=== PATIENT | female | born 1935 | race Caucasian/White ===

== ENCOUNTER 2017-06-17 15:45 | Emergency (ER) | payer MEDICARE, BC ==
[2017-06-17 16:41] LABS: ALT (SGPT) 19 U/L (8-55); AST (SGOT) 22 U/L (5-34); Albumin 3.8 g/dL (3.4-4.8); Alkaline Phosphatase 137 U/L (40-150); Anion Gap 15 mmol/L (10-20); BUN (Urea Nitrogen) 15 mg/dL (9.8-20.1); Bilirubin, Total 0.4 mg/dL (0.2-1.2); CK (CPK) 28 U/L (29-168); Calc. Creatinine Clearance 0 mL/min (70-130); Calcium 9.6 mg/dL (7.8-10.44); Carbon Dioxide 24 mmol/L (23-31); Chloride 94 mmol/L (98-107); Estimated GFR-MDRD 80; Globulin 3.4 g/dL (2.4-3.5); Glucose 98 mg/dL (83-110); Potassium 4.1 mmol/L (3.5-5.1); Protein, Total 7.2 g/dL (6.0-8.3); Sodium 129 mmol/L (136-145)
--- NOTE | 2017-06-17 16:41 | RAD ---
PORTABLE AP VIEW CHEST: Date: 06/17/17 HISTORY: Dyspnea and weakness since Saturday. COMPARISON: 02/28/16. FINDINGS: A single lead left subclavian AICD device is noted in place. The cardiac silhouette and pulmonary vas culature are within normal limits. Lungs are clear. Vascular calcifications seen thoracic aorta. Ther e is bilateral acromioclavicular joint osteoarthritis. There is mild prominence of the right paratrac heal soft tissues, but this is a stable finding when compared to the prior exam, as well as a prior e xam on 05/26/13, and may be related to vascular structures. There has been no interval change from th e prior exams. IMPRESSION: No acute cardiopulmonary process. POS: [facility]
[2017-06-17 16:44] LABS: CKMB 0.4 ng/mL (0-6.6); Troponin I Less than 0.010 ng/mL (< 0.028)
[2017-06-17 16:47] LABS: Band 4 % (5-11); Eosinophils 2 % (0-10); Hemoglobin 11.7 g/dL (12.0-16.0); Lymphocytes 26 % (21-51); MDiff Complete? YES; Mean Corpuscular HGB CONC 33.1 g/dL (32.0-36.0); Mean Corpuscular Hemoglobin 29.9 pg (27.0-31.0); Mean Corpuscular Volume 90.4 fl (81.0-99.0); Mean Platelet Volume 6.2 fL (7.4-10.4); Monocytes 10 % (0-10); Neutrophil 53 % (42-75); PLT Morphology Comment Appears Adequate; Platelet Count 304 thou/uL (130-400); RBC Distribution Width 11.2 % (11.5-14.5); Reactive Lymphocytes 4 % (0-10); Toxic Granulation SLIGHT; Vacuoles SLIGHT; White Blood Cell (WBC) Count 7.7 thou/uL (4.8-10.8)
[2017-06-17 17:18] LABS: Bilirubin Negative (Negative); Blood, Urine Negative (Negative); Clarity Clear (Clear); Glucose, Urine (Dipstick) Negative (Negative); Leukocyte Trace (Negative); Nitrite Negative (Negative); Protein, Urine (Dipstick) Negative (Neg-Trace); Urobilinogen 0.2 mg/dL (0.2-1.0)
[2017-06-17 17:23] LABS: Bacteria/HPF 1+ HPF (None Seen); RBC/HPF 0-3 HPF (0-3); Squamous Epithelial 0-3 HPF (0-3)
[2017-06-17] MEDS ORDERED: Sodium Chloride 0.9% 100 ML ONE (17:51)
[2017-06-17] MEDS ORDERED: cefTRIAXone\\ROCEPHIN 1 GM VIAL ONE (17:51)
== END 2017-06-17 18:45 | disposition home or self-care (01) ==
LOC: SCSER 15:45
DX: N39.0 Urinary tract infection, site not specified (principal); I48.91 Unspecified atrial fibrillation; E03.9 Hypothyroidism, unspecified; I10 Essential (primary) hypertension
CPT/HCPCS: 71045; 80053; 81003; 81015; 82550; 82553; 84484; 85025; 87086; 93005; 94760; 96361; 96365; J0696; J7050

== ENCOUNTER 2017-07-10 16:55 | Emergency (ER) | payer MEDICARE, BC ==
[2017-07-10 17:31] LABS: #Eosinphils 0.2 thou/uL (0.0-0.7); #Lymphocytes 0.9 thou/uL (1.20-3.40); #Monocytes 0.3 thou/uL (0.11-0.59); #Neutrophils 6.5 thou/uL (1.40-6.50); %Basophils 0.2 % (0.0-1.0); %Lymphocytes 11.9 % (21.0-51.0); %Neutrophils 81.8 % (42.0-75.0); Mean Corpuscular HGB CONC 33.1 g/dL (32.0-36.0); Mean Corpuscular Hemoglobin 31.6 pg (27.0-31.0); Mean Corpuscular Volume 95.3 fl (81.0-99.0); Mean Platelet Volume 7.2 fL (7.4-10.4); Platelet Count 251 thou/uL (130-400); RBC Distribution Width 11.9 % (11.5-14.5); White Blood Cell (WBC) Count 7.9 thou/uL (4.8-10.8)
[2017-07-10 17:47] LABS: ALT (SGPT) 14 U/L (8-55); AST (SGOT) 21 U/L (5-34); Albumin 3.9 g/dL (3.4-4.8); Alkaline Phosphatase 108 U/L (40-150); Anion Gap 11 mmol/L (10-20); BUN (Urea Nitrogen) 14 mg/dL (9.8-20.1); Bilirubin, Total 0.4 mg/dL (0.2-1.2); Calc. Creatinine Clearance 0 mL/min (70-130); Calcium 9.2 mg/dL (7.8-10.44); Carbon Dioxide 25 mmol/L (23-31); Chloride 94 mmol/L (98-107); Estimated GFR-MDRD 65; Globulin 3.1 g/dL (2.4-3.5); Glucose 127 mg/dL (83-110); Potassium 4.2 mmol/L (3.5-5.1); Sodium 126 mmol/L (136-145)
[2017-07-10 18:51] LABS: Bilirubin Negative (Negative); Blood, Urine Negative (Negative); Clarity CLEAR (Clear); Glucose, Urine (Dipstick) Negative (Negative); Leukocyte Moderate (Negative); Nitrite Negative (Negative); Protein, Urine (Dipstick) Negative (Neg-Trace); Specific Gravity, Urine 1.008 (1.002-1.036); Urobilinogen 0.2 mg/dL (0.2-1.0); pH, Urine 6.5 (5.0-9.0)
[2017-07-10 18:52] LABS: Bacteria/HPF None Seen HPF (None Seen); Hyaline Casts/LPF 4-6 HYALINE CAST LPF (0-3 Hyaline); Pathc Cast-AUWi Flag 0.94 (0-2.49); RBC/HPF 0-3 HPF (0-3)
[2017-07-10 19:50] LABS: Prothrombin Time 13.5 SEC (12.0-14.7)
[2017-07-10 20:01] LABS: CKMB 0.6 ng/mL (0-6.6); Troponin I Less than 0.010 ng/mL (< 0.028)
--- NOTE | 2017-07-10 20:19 | RAD ---
PORTABLE AP CHEST X-RAY 07/10/17 HISTORY: Weakness. Recent history of UTI treated with antibiotics. COMPARISON: 06/17/17. FINDINGS: A single lead left subclavian AICD device remains in place. The cardiac silhouette is magnified by pr ojection. Pulmonary vasculature is within normal limits. The lungs are clear. Vascular calcifications seen in the thoracic aorta. There has been no interval change compared to the prior exam. IMPRESSION: No acute cardiopulmonary process. POS: [facility]
== END 2017-07-10 23:18 | disposition home or self-care (01) ==
LOC: ERS 16:55
DX: E87.1 Hypo-osmolality and hyponatremia (principal); R53.1 Weakness; E03.9 Hypothyroidism, unspecified; N39.0 Urinary tract infection, site not specified; I48.91 Unspecified atrial fibrillation; I10 Essential (primary) hypertension; Z79.899 Other long term (current) drug therapy
CPT/HCPCS: 36415; 71045; 80053; 81003; 81015; 82553; 84443; 84484; 85025; 85610; 93005; 96360; 96361

== ENCOUNTER 2017-08-06 14:15 | Emergency (ER) | payer MEDICARE, BC ==
[2017-08-06 15:29] LABS: #Basophils 0.1 thou/uL (0.0-0.2); #Eosinphils 0.2 thou/uL (0.0-0.7); #Lymphocytes 1.4 thou/uL (1.20-3.40); #Monocytes 1.2 thou/uL (0.11-0.59); #Neutrophils 6.3 thou/uL (1.40-6.50); %Basophils 0.6 % (0.0-1.0); %Eosinophils 2.2 % (0.0-10.0); %Lymphocytes 15.6 % (21.0-51.0); %Monocytes 13.2 % (0.0-10.0); %Neutrophils 68.4 % (42.0-75.0); Hemoglobin 11.7 g/dL (12.0-16.0); Mean Corpuscular HGB CONC 33.4 g/dL (32.0-36.0); Mean Corpuscular Hemoglobin 31.1 pg (27.0-31.0); Mean Corpuscular Volume 93.1 fl (81.0-99.0); Mean Platelet Volume 6.7 fL (7.4-10.4); Platelet Count 247 thou/uL (130-400); RBC Distribution Width 12.2 % (11.5-14.5); Red Blood Cell (RBC) Count 3.76 mill/uL (4.20-5.40); White Blood Cell (WBC) Count 9.2 thou/uL (4.8-10.8)
--- NOTE | 2017-08-06 15:48 | RAD ---
CHEST ONE VIEW: 08/06/17 HISTORY: 82-year-old female with history of bodyaches and weakness which began yesterday. COMPARISON: 07/10/17. FINDINGS: Left ICD. Atherosclerosis of the aorta with ectasia. Biapical pleural thickening. No confluent pneumo vito, overt edema or pleural effusion. IMPRESSION: No acute intrathoracic disease. Stable from prior exam. POS: [facility]
[2017-08-06 15:53] LABS: ALT (SGPT) 10 U/L (8-55); AST (SGOT) 19 U/L (5-34); Albumin 3.6 g/dL (3.4-4.8); Alkaline Phosphatase 138 U/L (40-150); Anion Gap 13 mmol/L (10-20); BUN (Urea Nitrogen) 9 mg/dL (9.8-20.1); Bilirubin, Total 0.6 mg/dL (0.2-1.2); Calc. Creatinine Clearance 0 mL/min (70-130); Calcium 9.2 mg/dL (7.8-10.44); Carbon Dioxide 23 mmol/L (23-31); Chloride 98 mmol/L (98-107); Estimated GFR-MDRD 80; Glucose 95 mg/dL (83-110); Potassium 4.3 mmol/L (3.5-5.1); Protein, Total 6.6 g/dL (6.0-8.3); Sodium 130 mmol/L (136-145)
[2017-08-06 15:58] LABS: CKMB 0.3 ng/mL (0-6.6); Troponin I Less than 0.010 ng/mL (< 0.028)
[2017-08-06 17:07] LABS: Bilirubin Negative (Negative); Blood, Urine Negative (Negative); Clarity CLEAR (Clear); Glucose, Urine (Dipstick) Negative (Negative); Leukocyte Negative (Negative); Nitrite Negative (Negative); Protein, Urine (Dipstick) Negative (Neg-Trace); Specific Gravity, Urine 1.013 (1.002-1.036); Urobilinogen 0.2 mg/dL (0.2-1.0)
== END 2017-08-06 20:32 | disposition home or self-care (01) ==
LOC: ERS 14:15
DX: R53.1 Weakness (principal); I48.91 Unspecified atrial fibrillation; I42.9 Cardiomyopathy, unspecified; G47.00 Insomnia, unspecified; Z79.899 Other long term (current) drug therapy
CPT/HCPCS: 36415; 71045; 80053; 81003; 82553; 84443; 84484; 85025; 93005; 96360; 96361

== ENCOUNTER 2017-10-04 18:53 | Inpatient (IN) | payer MEDICARE, BC ==
[2017-10-04 19:27] LABS: Bilirubin Negative (Negative); Blood, Urine Negative (Negative); Clarity CLEAR (Clear); Glucose, Urine (Dipstick) Negative (Negative); Leukocyte Negative (Negative); Nitrite Negative (Negative); Protein, Urine (Dipstick) Negative (Neg-Trace); Specific Gravity, Urine 1.006 (1.002-1.036); Urobilinogen 0.2 mg/dL (0.2-1.0)
[2017-10-04 19:54] LABS: #Basophils 0.1 thou/uL (0.0-0.2); #Eosinphils 0.3 thou/uL (0.0-0.7); #Lymphocytes 1.4 thou/uL (1.20-3.40); #Monocytes 0.6 thou/uL (0.11-0.59); #Neutrophils 8.1 thou/uL (1.40-6.50); %Basophils 0.6 % (0.0-1.0); %Eosinophils 2.5 % (0.0-10.0); %Lymphocytes 13.7 % (21.0-51.0); %Neutrophils 77.2 % (42.0-75.0); Hemoglobin 13.3 g/dL (12.0-16.0); Mean Corpuscular HGB CONC 33.9 g/dL (32.0-36.0); Mean Corpuscular Hemoglobin 31.6 pg (27.0-31.0); Mean Corpuscular Volume 93.1 fl (81.0-99.0); Mean Platelet Volume 6.7 fL (7.4-10.4); Platelet Count 233 thou/uL (130-400); RBC Distribution Width 12.7 % (11.5-14.5); Red Blood Cell (RBC) Count 4.21 mill/uL (4.20-5.40); White Blood Cell (WBC) Count 10.4 thou/uL (4.8-10.8)
[2017-10-04 20:13] LABS: ALT (SGPT) 10 U/L (8-55); AST (SGOT) 19 U/L (5-34); Albumin 3.4 g/dL (3.4-4.8); Alkaline Phosphatase 95 U/L (40-150); Anion Gap 12 mmol/L (10-20); BUN (Urea Nitrogen) 11 mg/dL (9.8-20.1); Bilirubin, Total 0.5 mg/dL (0.2-1.2); CK (CPK) 56 U/L (29-168); Calc. Creatinine Clearance 0 mL/min (70-130); Calcium 8.7 mg/dL (7.8-10.44); Carbon Dioxide 20 mmol/L (23-31); Chloride 97 mmol/L (98-107); Estimated GFR-MDRD 65; Globulin 2.8 g/dL (2.4-3.5); Glucose 123 mg/dL (83-110); Protein, Total 6.2 g/dL (6.0-8.3); Sodium 125 mmol/L (136-145)
[2017-10-04 20:18] LABS: CKMB 0.8 ng/mL (0-6.6); Troponin I Less than 0.010 ng/mL (< 0.028)
--- NOTE | 2017-10-04 20:30 | RAD ---
AP VIEW OF THE CHEST: 10/04/17 INDICATION: Generalized weakness. COMPARISON: Comparisons are made with prior dated 08/06/17. IMPRESSION: Stable chronic lung changes. No acute cardiopulmonary abnormality. AICD is unchanged. Vascular calcif ication of the aortic arch is similar. Chronic lung changes are similar. No acute osseous abnormality is evident. POS: [facility]
[2017-10-04] MEDS ORDERED: Pantoprazole 40 MG VIAL ONE (20:59)
[2017-10-04 22:57] VITALS: BMI 23.6
[2017-10-04 23:21] LABS: Troponin I Less than 0.010 ng/mL (< 0.028)
[2017-10-05] MEDS ORDERED: Ondansetron HCl/PF 4 MG/2 ML Vial IVP PRN (01:54)
[2017-10-05 02:06] LABS: #Basophils 0.2 thou/uL (0.0-0.2); #Eosinphils 0.1 thou/uL (0.0-0.7); #Lymphocytes 0.4 thou/uL (1.20-3.40); #Monocytes 0.6 thou/uL (0.11-0.59); #Neutrophils 11.6 thou/uL (1.40-6.50); %Basophils 1.8 % (0.0-1.0); %Eosinophils 0.4 % (0.0-10.0); %Lymphocytes 3.3 % (21.0-51.0); %Monocytes 4.5 % (0.0-10.0); Hemoglobin 12.3 g/dL (12.0-16.0); Mean Corpuscular HGB CONC 33.9 g/dL (32.0-36.0); Mean Corpuscular Hemoglobin 31.1 pg (27.0-31.0); Mean Corpuscular Volume 91.8 fl (81.0-99.0); Mean Platelet Volume 6.8 fL (7.4-10.4); Platelet Count 216 thou/uL (130-400); RBC Distribution Width 12.8 % (11.5-14.5); Red Blood Cell (RBC) Count 3.94 mill/uL (4.20-5.40); White Blood Cell (WBC) Count 12.8 thou/uL (4.8-10.8)
[2017-10-05] MEDS: Sodium Chloride 0.9% 1,000 ML IV SCH ×2 (02:15→13:56)
[2017-10-05 02:24] LABS: Troponin I Less than 0.010 ng/mL (< 0.028)
[2017-10-05 02:38] LABS: Prothrombin Time 13.6 SEC (12.0-14.7)
[2017-10-05 02:57] LABS: Anion Gap 9 mmol/L (10-20); BUN (Urea Nitrogen) 11 mg/dL (9.8-20.1); Calc. Creatinine Clearance 56 mL/min (70-130); Calcium 7.8 mg/dL (7.8-10.44); Carbon Dioxide 23 mmol/L (23-31); Chloride 101 mmol/L (98-107); Estimated GFR-MDRD 80; Glucose 143 mg/dL (83-110); Potassium 3.8 mmol/L (3.5-5.1); Sodium 129 mmol/L (136-145)
--- NOTE | 2017-10-05 03:14 | HP ---
PRIMARY CARE PHYSICIAN: Brain Alvarado M.D. CHIEF COMPLAINT: Weakness. HISTORY OF PRESENT ILLNESS: This is an 82-year-old female with a known history of hypothyroidism, hy pertension, degenerative joint disease, prior history of chronic hyponatremia, nonischemic cardiomyop athy, status post ICD placement, who presents with a chief complaint of weakness. The patient gives a history of progressive weakness over the last week, accompanied by decreased p.o. intake and consti pation. Denies any fevers or chills. Denies any overt myalgias or arthralgias. REVIEW OF SYSTEMS: As per HPI. Constitutional: No significant weight change. No fevers or chills. HEENT: No new headaches, lightheadedness or dizziness. No new vision changes. Cardiovascular: N o overt chest pain or chest pressure. Easy fatigability. No left-sided arm numbness or tingling, di aphoretic episodes. Respiratory: No overt shortness of breath or dyspnea with exertion with the wea kness. No recent upper respiratory infection. No new cough. Gastrointestinal: Decreased appetite without overt nausea or vomiting, constipation over the last few days. Genitourinary: Denies any dy suria, change in urinary frequency, quantity, or output color or odor. Musculoskeletal: No new foca l myalgias or arthralgias. Remainder of review of systems otherwise negative. PAST MEDICAL HISTORY: As per above includes, 1. Hypertension. 2. Hypothyroidism. 3. Hyponatremia, baseline sodium from our records to be approximately in the 130s. 4. Polymyalgia rheumatica with chronic prednisone therapy. 5. Degenerative joint disease. 6. Gastroesophageal reflux disease. 7. Nonischemic cardiomyopathy, status post single chamber ICD placement. 8. Status post hysterectomy. 9. Status post cholecystectomy. 10. Status post small bowel resection secondary to obstruction in 2011. 11. ICD placement in 2016. 12. Cardiac catheterization. 13. Multiple dilatation and cauterized with miscarriages and dysfunctional uterine bleeding. 14. Status post bladder suspension. HOME MEDICATIONS: Please see the EMR for full details. Current list includes the following: Flucon azole 100 mg p.o. daily, amlodipine 2.5 mg p.o. daily, omeprazole 20 mg p.o. daily, lisinopril 20 mg p.o. b.i.d., levothyroxine 50 mcg p.o. daily, iron 28 mg p.o. daily, hydroxychloroquine 200 mg p.o. q .a.m., glucosamine 1000 mg p.o. daily, carvedilol 25 mg p.o. b.i.d. ALLERGIES: List is quite extensive, in which no reactions are listed, but the allergic agents includ e SODIUM PHOSPHATE, TRIMETHOPRIM, ACETAMINOPHEN, AMOXICILLIN, TRIHYDRATE, CEPHALEXIN, MONOHYDRATE, CL INDAMYCIN, DICLOXACILLIN, DOXYCYCLINE, HYDROCODONE, BITARTRATE, LEVOFLOXACIN, NITROFURANTOIN, POTASSI UM CLAVULANATE, SODIUM BICARBONATE, SULFAMETHOXAZOLE, and SULFA MEDICATIONS and THIOPENTAL SODIUM. FAMILY HISTORY: Significant for cancer and coronary artery disease. SOCIAL HISTORY: The patient denies any alcohol, tobacco, or illicit drug use. Endorses wishing to b e FULL CODE at this point in time. PHYSICAL EXAMINATION: GENERAL: The patient is awake, conversant, in no acute distress, lying in the hospital bed. HEENT: Normocephalic, atraumatic. Equal ocular motions are intact. Slightly dry mucous membranes. The patient appears to be generally speaking pale. CARDIOVASCULAR: S1, S2. No murmurs, rubs or gallops. No pitting pedal edema. Pulses 2+ bilateral upper extremities. RESPIRATORY: Reasonable air movement. No conversational dyspnea. No wheezes, rales, or rhonchi, ot herwise clear to auscultation bilaterally. ABDOMEN: Positive bowel sounds, soft, nontender to palpation. MUSCULOSKELETAL: Moving all 4 extremities independently. LABORATORY DATA AND IMAGING: WBC 10.4, hemoglobin 13.3, hematocrit 39.2, platelets 233. Sodium 125, potassium 4.0, chloride 97, bicarbonate 20, BUN 11, creatinine 0.84, glucose 123, calcium 8.7, total bilirubin 0.5, AST 19, ALT 10, alkaline phosphatase 95. Troponin less than 0.01 x2. B-natriuretic peptide 212.4. Total protein 6.4, albumin 3.4. TSH 12.13. UA is essentially bland. Chest x-ray pe r radiology, impression "stable chronic lung changes. No acute cardiopulmonary abnormality. AICD is unchanged. Vascular calcification of the aortic arch is similar. Chronic lung changes are similar. No acute osseous abnormalities evident." The patient had a fecal occult blood test completed, which is positive for fecal occult blood. ASSESSMENT AND PLAN: An 82-year-old female presenting with a chief complaint of weakness. 1. Weakness, unclear primary etiology. Differential is unfortunately quite broad, could be secondar y to hyponatremia, thyroiditis, hypothyroidism, or potential blood loss. 2. Hyponatremia. The patient has a known history of chronic hyponatremia, but her current sodium ap pears to be slightly lower than typical. Patient also has had a significant decrease in oral intake for approximately a week at this point. We will recheck sodium serially q.6 hours. Continue with no rmal saline, IV fluid running at 100 mL an hour with close monitoring of mental status. 3. Hypothyroidism, TSH elevated at 12.1. We will recheck the TSH, T3, and T4. There certainly coul d be a reactive component. Resume the patient on her home levothyroxine, adjust if needed. 4. Concern for decreased appetite with positive fecal occult blood, concern for upper gastrointestin al etiology. I appreciate GI consultation. The patient is currently n.p.o., IV fluids with close he modynamic monitoring. Currently, hemodynamically stable, start pantoprazole 40 mg IV b.i.d. and seri al H&H. Transfuse to maintain a hemoglobin greater than 7. 5. Hypertension. Please see the discussion above. 6. History of nonischemic cardiomyopathy, currently appears to be stable. 7. Admit the patient inpatient on telemetry. FULL CODE. 8. Diet: N.p.o. 9. Activity: As tolerated. Deep venous thrombosis prophylaxis with sequentials. No pharmacologica l deep venous thrombosis prophylaxis due to concern for gastrointestinal bleed as noted above.
[2017-10-05 05:16] LABS: T4 4.8 ug/dL (4.87-11.72)
[2017-10-05] MEDS ORDERED: Dicyclomine 10 MG CAP PO PRN (05:48)
[2017-10-05] MEDS ORDERED: Dicyclomine 10 MG CAP PO SCH (06:00)
[2017-10-05] MEDS ORDERED: Cosyntropin 250 MCG VIAL SLOW IVP SCH (07:45)
[2017-10-05 08:35] LABS: Magnesium 2.1 mg/dL (1.6-2.6); Phosphorus 3.1 mg/dL (2.3-4.7)
[2017-10-05] MEDS: Hydroxychloroquine Sulfate 200 MG TAB PO SCH (08:38)
[2017-10-05] MEDS ORDERED: Pantoprazole 40 MG VIAL IVP SCH (09:00)
[2017-10-05] MEDS ORDERED: Prevnar 13-Val Conj/PF 0.5 ML SYRINGE IM ONE (09:00)
[2017-10-05] MEDS ORDERED: Carvedilol 25 MG TAB PO SCH (09:00)
[2017-10-05] MEDS ORDERED: Labetalol HCl 100 MG/20 ML VIAL SLOW IVP PRN (09:22)
[2017-10-05 10:34] LABS: Sodium 132 mmol/L (136-145)
[2017-10-05] MEDS: Carvedilol 3.125 MG TAB PO SCH (16:53)
[2017-10-05 17:21] LABS: Hemoglobin 11.4 g/dL (12.0-16.0)
[2017-10-05 17:35] LABS: Sodium 130 mmol/L (136-145)
[2017-10-05] MEDS ORDERED: predniSONE 20 MG TAB PO SCH (19:45)
[2017-10-05] MEDS: Hydrocortisone Acetate 25 MG Suppository PR SCH (20:23)
[2017-10-05] MEDS ORDERED: Loperamide HCl 2 MG CAP PO PRN (22:28)
[2017-10-06 05:50] LABS: #Lymphocytes 1.2 thou/uL (1.20-3.40); #Monocytes 0.4 thou/uL (0.11-0.59); #Neutrophils 4.8 thou/uL (1.40-6.50); %Basophils 0.1 % (0.0-1.0); %Eosinophils 0.8 % (0.0-10.0); %Lymphocytes 18.1 % (21.0-51.0); %Monocytes 6.2 % (0.0-10.0); %Neutrophils 74.8 % (42.0-75.0); Hemoglobin 9.9 g/dL (12.0-16.0); Mean Corpuscular HGB CONC 34.1 g/dL (32.0-36.0); Mean Corpuscular Hemoglobin 31.7 pg (27.0-31.0); Mean Corpuscular Volume 93.1 fl (81.0-99.0); Mean Platelet Volume 7.1 fL (7.4-10.4); Platelet Count 188 thou/uL (130-400); RBC Distribution Width 12.6 % (11.5-14.5); Red Blood Cell (RBC) Count 3.13 mill/uL (4.20-5.40); White Blood Cell (WBC) Count 6.4 thou/uL (4.8-10.8)
[2017-10-06 06:21] LABS: Anion Gap 7 mmol/L (10-20); BUN (Urea Nitrogen) 5 mg/dL (9.8-20.1); Calc. Creatinine Clearance 65 mL/min (70-130); Calcium 8.2 mg/dL (7.8-10.44); Carbon Dioxide 23 mmol/L (23-31); Chloride 102 mmol/L (98-107); Estimated GFR-MDRD Greater than 90; Glucose 101 mg/dL (83-110); Magnesium 1.8 mg/dL (1.6-2.6); Phosphorus 2.3 mg/dL (2.3-4.7); Potassium 3.5 mmol/L (3.5-5.1); Sodium 128 mmol/L (136-145)
[2017-10-06] MEDS ORDERED: predniSONE 20 MG TAB PO SCH (08:00)
[2017-10-06] MEDS: Hydroxychloroquine Sulfate 200 MG TAB PO SCH (08:37)
[2017-10-06] MEDS: Carvedilol 3.125 MG TAB PO SCH ×2 (08:37→17:21)
[2017-10-06] MEDS: Hydrocortisone Acetate 25 MG Suppository PR SCH (08:38)
[2017-10-06 11:23] LABS: Sodium 131 mmol/L (136-145)
[2017-10-06] MEDS ORDERED: predniSONE 5 MG TAB PO SCH (12:00)
[2017-10-06 15:39] VITALS: BP 135/65; TEMP 98.9
[2017-10-06 17:05] LABS: Sodium 130 mmol/L (136-145)
--- NOTE | 2017-10-07 09:40 | DIS ---
DATE OF ADMISSION: 10/04/2017 DATE OF DISCHARGE: 10/06/2017 DISCHARGE DISPOSITION: Home. The patient declined home healthcare. FOLLOWUP: 1. Follow up with primary care physician, Dr. Brain Avlarado in 2-3 days. 2. Fall precautions with 24-hour supervision recommended. 3. Base met in 2 days. Primary care physician is advised to follow. DISCHARGE MEDICATIONS: Amlodipine 2.5 mg daily if blood pressure is more than 150, carvedilol 3.125 mg twice a day, prednisone 5 mg daily, omeprazole 20 mg daily, levothyroxine 50 mcg daily, iron 28 mg daily, Plaquenil 200 mg daily, glucosamine 1000 mg daily. INPATIENT CONSULTANTS: None. BRIEF HOSPITAL COURSE: Patient is an 82-year-old female with hypertension, hypothyroidism who presen gregorio to the emergency room with generalized weakness. Please note that her initial home medications t hat was listed by the nurses did not include prednisone. It was unclear on admission whether she was on prednisone. Please refer to the history and physical for further details. The patient was admitted to the hospital with a diagnosis of generalized weakness, probably secondary to hyponatremia. Her sodium on admission was 125. She showed good improvement with fluid restricti on. She also received 20 mg prednisone for 2 days while in the hospital. She underwent cosyntropin test since it was unclear whether she was on prednisone at home that was abnormal. This was confirme d with the later on that patient takes prednisone 5 mg every day. Primary care physician adv ised to follow. Her sodium on the day of discharge is 131. She appears comfortable for discharge. Her blood pressure remained in the 130 range. Orthostatic vitals were negative. Carvedilol dose has been reduced to 3.125 mg twice a day. She was advised to monitor her blood pressure on a daily basi s. FINAL DIAGNOSES: 1. Generalized weakness, multifactorial. 2. Acute on chronic hyponatremia, improved. 3. Hypothyroidism. 4. Polymyalgia rheumatica on chronic low dose prednisone. 5. Gastroesophageal reflux disease. 6. Nonischemic cardiomyopathy status post AICD. Plan of care was discussed with the patient and the family in detail. They stated understanding. Total time coordinating the discharge of this patient including education was 33 minutes.
== END 2017-10-06 17:38 | disposition home or self-care (01) | DRG 641 ==
LOC: ERS 18:53 → 2NO 20:58
PROVIDERS: ADMIT Internal Medicine; ATTEND Internal Medicine
DX: E87.1 Hypo-osmolality and hyponatremia (principal); I42.8 Other cardiomyopathies; E03.9 Hypothyroidism, unspecified; I10 Essential (primary) hypertension; Z95.810 Presence of automatic (implantable) cardiac defibrillator; M35.3 Polymyalgia rheumatica; K21.9 Gastro-esophageal reflux disease without esophagitis; M19.90 Unspecified osteoarthritis, unspecified site; Z90.710 Acquired absence of both cervix and uterus; Z90.49 Acquired absence of other specified parts of digestive tract
CPT/HCPCS: 36415; 51701; 71045; 80048; 80053; 80400; 81003; 82274; 82553; 82607; 82746; 83735; 83880; 84100; 84436; 84443; 84481; 84484; 85025; 85610; 86850; 86900; 86901; 87045; 87046; 87081; 87324; 87328; 87329; 87449; 87899; 90471; 90670; 93005; 96361; 96374; A4353; C9113; G0009; G8978-GP-CJ; G8979-GP-CI; J0834; J7506

== ENCOUNTER 2018-04-01 16:35 | Inpatient (IN) | payer MEDICARE, BC ==
[2018-04-01 17:31] LABS: #Basophils 0.1 thou/uL (0.0-0.2); #Eosinphils 0.2 thou/uL (0.0-0.7); #Lymphocytes 1.1 thou/uL (1.20-3.40); #Monocytes 0.7 thou/uL (0.11-0.59); #Neutrophils 4.5 thou/uL (1.40-6.50); %Basophils 0.8 % (0.0-1.0); %Eosinophils 3.1 % (0.0-10.0); %Monocytes 10.7 % (0.0-10.0); %Neutrophils 68.4 % (42.0-75.0); Hemoglobin 12.4 g/dL (12.0-16.0); Mean Corpuscular HGB CONC 33.4 g/dL (32.0-36.0); Mean Corpuscular Hemoglobin 30.4 pg (27.0-31.0); Mean Platelet Volume 7.3 fL (7.4-10.4); Platelet Count 242 thou/uL (130-400); RBC Distribution Width 11.7 % (11.5-14.5); Red Blood Cell (RBC) Count 4.08 mill/uL (4.20-5.40); White Blood Cell (WBC) Count 6.6 thou/uL (4.8-10.8)
[2018-04-01 18:01] LABS: ALT (SGPT) 7 U/L (8-55); AST (SGOT) 16 U/L (5-34); Albumin 3.9 g/dL (3.4-4.8); Alkaline Phosphatase 101 U/L (40-150); Anion Gap 10 mmol/L (10-20); BUN (Urea Nitrogen) 11 mg/dL (9.8-20.1); Bilirubin, Total 0.3 mg/dL (0.2-1.2); Calc. Creatinine Clearance 0 mL/min (70-130); Calcium 9.2 mg/dL (7.8-10.44); Carbon Dioxide 27 mmol/L (23-31); Chloride 94 mmol/L (98-107); Estimated GFR-MDRD 57; Globulin 3.1 g/dL (2.4-3.5); Glucose 114 mg/dL (83-110); Magnesium 1.3 mg/dL (1.6-2.6); Potassium 4.1 mmol/L (3.5-5.1); Sodium 127 mmol/L (136-145)
[2018-04-01 18:04] LABS: Bilirubin Negative (Negative); Blood, Urine Small (Negative); Clarity TURBID (Clear); Glucose, Urine (Dipstick) Negative (Negative); Leukocyte Large (Negative); Nitrite Negative (Negative); Protein, Urine (Dipstick) Negative (Neg-Trace); Specific Gravity, Urine 1.005 (1.002-1.036); Urobilinogen 0.2 mg/dL (0.2-1.0)
[2018-04-01 18:05] LABS: Bacteria/HPF 1+ HPF (None Seen); Hyaline Casts/LPF 0-3 HYALINE CAST LPF (0-3 Hyaline); Pathc Cast-AUWi Flag 0.87 (0-2.49); RBC/HPF 0-3 HPF (0-3); Squamous Epithelial None Seen HPF (0-3)
[2018-04-01] MEDS ORDERED: Sodium Chloride 0.9% 100 ML ONE (18:38)
[2018-04-01] MEDS ORDERED: cefTRIAXone\\ROCEPHIN 1 GM VIAL ONE (18:38)
[2018-04-01] MEDS ORDERED: Senokot S 8.6-50 MG TAB PO PRN (19:25)
[2018-04-01] MEDS ORDERED: Guaifenesin DM 100-10/5 ML UDCUP PO PRN (19:25)
[2018-04-01] MEDS ORDERED: Acetaminophen 325 MG TAB PO PRN (19:25)
[2018-04-01] MEDS ORDERED: Ondansetron PF 4 MG/2 ML Vial IVP PRN (19:25)
[2018-04-01] MEDS ORDERED: cloNIDine 0.1 MG TAB PO PRN (19:58)
[2018-04-01] MEDS ORDERED: Nitroglycerin 0.4 MG TAB (25 Tab Bottle) SL PRN (20:04)
[2018-04-01] MEDS ORDERED: traMADol HCl 50 MG TAB PO PRN (20:05)
[2018-04-01] MEDS ORDERED: PROVENTIL INHALER 6.7 G (200 INHALATIONS) INH PRN (20:06)
[2018-04-01] MEDS: Sodium Chloride 0.9% 1,000 ML IV SCH (20:27)
[2018-04-01] MEDS ORDERED: Atorvastatin Calcium 40 MG TAB PO SCH (21:00)
[2018-04-01] MEDS ORDERED: Nebivolol HCl 5 MG TAB PO SCH (21:00)
[2018-04-01] MEDS ORDERED: Famotidine 20 MG TAB PO SCH (21:00)
[2018-04-01] MEDS ORDERED: predniSONE 5 MG TAB PO SCH (21:00)
[2018-04-01] MEDS ORDERED: Amitriptyline HCl 10 MG TAB PO SCH (21:00)
[2018-04-01 22:48] VITALS: BMI 22.4
--- NOTE | 2018-04-02 03:07 | HP ---
REASON FOR ADMISSION: Hyponatremia, dehydration, urinary tract infection. HISTORY OF PRESENT ILLNESS: The patient gives history of not being able to pass urine for the last two days. She felt very dry. Has not had any fever. No complaints of diarrhea. She was ambulating by herself a month back, but states that she has graduated into a rolling walker as she has been slowly getting deconditioned at home. Her at bedside states that she does not drink enough water. PAST MEDICAL AND SURGICAL HISTORY: History of hypertension, dementia, hypothyroidism, history of chronic hyponatremia with baseline sodium of 130s, polymyalgia rheumatica, GERD, nonischemic cardiomyopathy with AICD, hysterectomy , cholecystectomy, history of small bowel resection secondary to obstruction in 2011, prior cardiac catheterization, bladder suspension surgery. CURRENT MEDICATIONS: Please note patient does not recall any of her medications. Per ER and medical records, the patient is on Coreg 25 mg twice daily, lisinopril 20 mg twice daily, Norvasc 2.5 mg daily, glucosamine 1000 mg daily, Plaquenil 200 mg daily, Synthroid 50 mcg daily, Prilosec 20 mg daily, fluconazole 100 mg daily, iron 27 mg daily, folic acid 1 mg daily, methotrexate 1.5 mg once weekly on Tuesdays, p.r.n. for pain. ALLERGIES: The patient is allergic to multiple medications including AMOXICILLIN, KEFLEX, CLINDAMYCIN, DICLOXACILLIN, HYDROCODONE, DOXYCYCLINE, LEVAQUIN, LORTAB, NITROFURANTOIN, PENTOTHAL, SODIUM BICARBONATE, SULFAMETHOXAZOLE. PERSONAL HISTORY: Does not abuse alcohol or drugs. No history of smoking. FAMILY HISTORY: Mom in her 60s. She has had history of coronary artery disease. Father in his 70s and was a heavy smoker. CODE STATUS: FULL. Power of bankruptcy attorney is her . REVIEW OF SYSTEMS: The following complete review of systems was negative, unless otherwise mentioned in the HPI or below: Constitutional: Weight loss or gain, ability to conduct usual activities. Skin: Rash, itching. Eyes: Double vision, pain. ENT/Mouth: Nose bleeding, neck stiffness, pain, tenderness. Cardiovascular: Palpitations, dyspnea on exertion, orthopnea. Respiratory: Shortness of breath, wheezing, cough, hemoptysis, fever or night sweats. Gastrointestinal: Poor appetite, abdominal pain, heartburn, nausea, vomiting, constipation, or diarrhea. Genitourinary: Urgency, frequency, dysuria, nocturia. Musculoskeletal: Pain, swelling. Neurologic/Psychiatric: Anxiety, depression. Allergy/Immunologic: Skin rash, bleeding tendency. PHYSICAL EXAMINATION: GENERAL: The patient is an 82-year-old female who is currently not in any acute distress. VITAL SIGNS: Blood pressure 158/84, pulse 90 per minute, respiratory rate 18 per minute, temperature 97.5 degrees Fahrenheit, saturating 96% on room air. NECK: Supple, no elevated JVD. HEENT: Eyes: Extraocular muscles intact. Pupils reacting to light. Oral cavity: Mucous membranes are dry. No exudates or congestion. CARDIOVASCULAR SYSTEM: S1, S2 heard. Regular rhythm. RESPIRATORY SYSTEM: Air entry 1+ bilateral. No rales or rhonchi. ABDOMEN: Soft, bowel sounds heard. No tenderness, rigidity or guarding. EXTREMITIES: No peripheral edema or calf tenderness. VASCULAR SYSTEM: Peripheral pulses 1+ bilateral, no ischemic ulcerations or gangrene. CENTRAL NERVOUS SYSTEM: No gross focal deficits noted. The patient is alert and responds well to verbal questions. PSYCHIATRIC SYSTEM: No obvious hallucinations or delusions. LABORATORY DATA: Sodium 127, potassium 4.1, serum chloride 94, serum bicarbonate 27, BUN is 11, creatinine 0.9, serum glucose 114. Serum osmolality 273, magnesium 1.3. Liver enzymes within normal limits. Albumin is 3.9. TSH 10.16. White count of 6, H&H 12 and 37, platelet count 242 with 68% neutrophils , MCV is 91. Liver enzymes are within normal limits. UA shows large leukocyte esterase, greater than 50 wbc's and 1+ bacteria. CLINICAL IMPRESSION AND PLAN: The patient will be admitted to medical floor for moderate to severe dehydration with hyponatremia and urinary tract infection. The patient is allergic to multiple antibiotics and we will try to place her on ceftriaxone and see if she develops any allergies. She does not recall which antibiotic causes what reaction. In view of this and not wanting to place her on broad spectrum coverage, we will place her on Rocephin 1 gram IV daily. Blood and urine cultures will be obtained. We will continue on Norvasc, Coreg, small dose Pepcid, Plaquenil, Synthroid, Prilosec as before. She will be on normal saline at 80 mL per hour. We will consult Dr. Thompson who is district loss prevention manager for Nephrology for hyponatremia. Code status was discussed with her and she is a FULL CODE. Her is her power of bankruptcy attorney. PT, OT evaluations will be requested for early ambulation. JULIA
[2018-04-02] MEDS: Levothyroxine Sodium 50 MCG TAB PO SCH (05:41)
[2018-04-02 05:58] LABS: #Basophils 0.1 thou/uL (0.0-0.2); #Eosinphils 0.2 thou/uL (0.0-0.7); #Lymphocytes 1.6 thou/uL (1.20-3.40); #Monocytes 0.8 thou/uL (0.11-0.59); %Basophils 0.9 % (0.0-1.0); %Lymphocytes 27.6 % (21.0-51.0); %Monocytes 14.6 % (0.0-10.0); %Neutrophils 53.9 % (42.0-75.0); Hemoglobin 11.8 g/dL (12.0-16.0); Mean Corpuscular HGB CONC 32.5 g/dL (32.0-36.0); Mean Corpuscular Volume 92.2 fL (78.0-98.0); Mean Platelet Volume 7.4 fL (7.4-10.4); Platelet Count 225 thou/uL (130-400); RBC Distribution Width 11.6 % (11.5-14.5); Red Blood Cell (RBC) Count 3.93 mill/uL (4.20-5.40); White Blood Cell (WBC) Count 5.6 thou/uL (4.8-10.8)
[2018-04-02] MEDS ORDERED: Levothyroxine Sodium 50 MCG TAB PO SCH (06:00)
[2018-04-02 06:22] LABS: Anion Gap 11 mmol/L (10-20); BUN (Urea Nitrogen) 8 mg/dL (9.8-20.1); Calc. Creatinine Clearance 52 mL/min (70-130); Calcium 8.9 mg/dL (7.8-10.44); Carbon Dioxide 24 mmol/L (23-31); Chloride 102 mmol/L (98-107); Estimated GFR-MDRD 81; Glucose 96 mg/dL (83-110); Potassium 3.7 mmol/L (3.5-5.1); Sodium 133 mmol/L (136-145)
[2018-04-02] MEDS ORDERED: predniSONE 5 MG TAB PO SCH (08:00)
[2018-04-02] MEDS: Carvedilol 3.125 MG TAB PO SCH ×2 (08:33→17:00)
[2018-04-02] MEDS: Sodium Chloride 0.9% 1,000 ML IV SCH (08:34)
[2018-04-02] MEDS: Amlodipine 5 MG TAB PO SCH (08:34)
[2018-04-02] MEDS: Enoxaparin Sodium 40 MG/0.4 ML SYRINGE SC SCH (08:34)
[2018-04-02] MEDS: Hydroxychloroquine Sulfate 200 MG TAB PO SCH (08:39)
[2018-04-02] MEDS ORDERED: [UNRECOGNIZED DRUG - OTHER] PO SCH (09:00)
[2018-04-02] MEDS ORDERED: Non-Formulary Item 1 EACH (Omeprazole [Prilosec] 20 MG) PO SCH (09:00)
[2018-04-02] MEDS ORDERED: Losartan 25 MG TAB PO SCH (09:00)
[2018-04-02] MEDS ORDERED: LIGHT MINERAL OIL PO SCH (09:00)
[2018-04-02] MEDS ORDERED: OPTH PO SCH (09:00)
[2018-04-02] MEDS ORDERED: Aspirin 81 mg Enteric Coated Tablet PO SCH (09:00)
[2018-04-02] MEDS ORDERED: Furosemide 20 MG TAB PO SCH (09:00)
[2018-04-02 16:09] LABS: Osmolality, Urine 300 mOsm/kg (300-900)
[2018-04-02 16:11] LABS: Sodium, Urine 122 mmol/L (Not Available)
[2018-04-02] MEDS ORDERED: cefTRIAXone\\ROCEPHIN 1 GM in Sodium Chloride 0.9% 100 ML IVPB SCH (18:00)
--- NOTE | 2018-04-02 18:03 | PDOC.PN ---
- Subjective Encounter Start Date: 04/02/18 Encounter Start Time: 17:55 Subjective: f/u for dehydration and suspected UTI. States urinating frequently -: and drinking H2O and receiving IVF's. c/o of IV in LUE [place]. - Objective Resuscitation Status: Resuscitation Status FULL:Full Resuscitation MAR Reviewed: Yes Vital Signs & Weight: Vital Signs (12 hours) Temp Pulse Resp BP Pulse Ox 04/02/18 16:35 97.7 F 65 16 158/69 H 97 04/02/18 15:07 96 04/02/18 10:00 97.7 F 70 16 151/74 H 96 04/02/18 08:34 77 04/02/18 07:40 98.5 F 77 16 174/78 H 99 Weight Weight 118 lb 8 oz I&O: 04/01/18 04/02/18 04/03/18 06:59 06:59 06:59 Intake Total 320 Balance 320 Result Diagrams: 04/02/18 04:55 04/02/18 04:55 Additional Labs: Microbiology 04/01/18 19:54 Venous blood - Left Arm Blood Culture - Preliminary Specimen has been received and culture in progress. No Growth to date. 04/01/18 19:47 Venous blood - Right Arm Blood Culture - Preliminary Specimen has been received and culture in progress. No Growth to date. 04/01/18 17:46 Urine malone catheter Urine Culture - Preliminary Laboratory Tests 10/05/17 11/22/17 04/01/18 02:24 13:07 17:20 Sodium 127 L Creatinine 0.94 Estimated GFR (MDRD) 57 TSH 3rd Generation 3.0995 5.5860 H 04/01/18 04/02/18 17:20 04:55 Sodium Creatinine Estimated GFR (MDRD) 81 TSH 3rd Generation 10.1624 H Phys Exam - Physical Examination Constitutional: NAD HEENT: PERRLA, sclera anicteric, oral pharynx no lesions Neck: no nodes, no JVD, supple, full ROM Respiratory: no wheezing, no rales, no rhonchi, clear to auscultation bilateral S1, S2 Cardiovascular: RRR, no significant murmur, no rub, gallop Gastrointestinal: soft, non-tender, no distention, positive bowel sounds Musculoskeletal: no edema, pulses present Neurological: normal sensation, moves all 4 limbs Psychiatric: A&O x 3 Deviation from normal: L antecubital fossa with IV in place, mild edema noted Skin: normal turgor, cap refill <2 seconds Dx/Plan (1) WILBER (acute kidney injury) Code(s): N17.9 - ACUTE KIDNEY FAILURE, UNSPECIFIED Status: Acute Comment: Secondary to dehydration, improved with IVF's, avoid nephrotoxic meds and limit contrast exposure (2) Dehydration Code(s): E86.0 - DEHYDRATION Status: Acute Comment: Improved, continue IVF' s (3) UTI (urinary tract infection) Status: Acute Comment: Suspected, Ucx pending, continue Rocephin pending cx results (4) Acute hyponatremia Code(s): E87.1 - HYPO-OSMOLALITY AND HYPONATREMIA Status: Acute Comment: Acute/chronic hyponatremia, improved with NS - Plan continue antibiotics, social services specialist, DVT proph w/SCDs Stable overall -: Continue Rocephin IV -: Continue IVF's another 24h -: Encourage increased free-H2O intake -: AM lab: BMP * .
[2018-04-02] MEDS ORDERED: Famotidine 20 MG TAB PO SCH (21:00)
--- NOTE | 2018-04-03 02:25 | CON ---
DATE OF CONSULTATION: 04/02/2018 CONSULTING PHYSICIAN: Jay Monae M.D. REQUESTING PHYSICIAN: Dr. Lo. REASON FOR CONSULTATION: Hyponatremia. IMPRESSION: Hyponatremia, query cause going by the urine chemistry, this has features of SIADH, but this is most likely due to suboptimally controlled hypothyroidism. One cannot completely rule out a component of dehydration though the patient's hemodynamics are similar to the blood pressure pretty m uch . PLAN: 1. Address the hypothyroidism. 2. Discontinue current normal saline. 3. Improve nutrition intake in the way of increase protein intake. 4. Further management to be dependent on the clinical course. HISTORY OF PRESENT ILLNESS: History is that of an 82-year-old female patient having not been a ble to pass urine for the past 2 days. The patient, according to the record, not be drinking very we ll. On presentation, the patient was noted to be hyponatremic with some evidence of urinary tract in fection. As a result of this, decision was taken to involve Renal in the management of this case. PAST MEDICAL HISTORY: Significant for hypertension, dementia, hypothyroidism, history of hyponatremi a, polymyalgia rheumatica, reflux disease, status post-cholecystectomy, hysterectomy, [facility]. MEDICATIONS: Reviewed and as documented on [employer]. ALLERGIES: KEFLEX, CLINDAMYCIN, DICLOXACILLIN, HYDROCODONE, DOXYCYCLINE, LEVAQUIN, LORTAB, NITROFURA NTOIN, PENTOTHAL, SODIUM BICARBONATE, and SULFAMETHOXAZOLE. FAMILY HISTORY: None significantly related to presenting illness. REVIEW OF SYSTEMS: As documented in the body of the history. All the other systems were reviewed an d found not to be significantly related to the presenting illness. LABORATORY INVESTIGATION: On presentation revealed a sodium of 127. TSH of 10.16. Urine chemistry showed urine osmolarity of 300 and urine sodium of 122. PHYSICAL EXAMINATION: GENERAL: On examination, the patient was found to be in any obvious distress. Noted with the follow ing vital signs. VITAL SIGNS: Afebrile with temperature 97.7, pulse 70, respiratory rate of 16, O2 sat of 92% with bl ood pressure 151/74. HEENT: Unremarkable. CARDIOVASCULAR SYSTEM: First and heart sounds were heard. RESPIRATORY SYSTEM: Clear to auscultation. DIGESTIVE SYSTEM: Revealed a benign abdomen. EXTREMITIES: No peripheral edema. SKIN: No new gross rash. LYMPHATICS: No peripheral lymphadenopathy. SUMMARY: An 82-year-old female patient, who presented here with hyponatremia. Noted to be hypothyro idic. Thank you for this consultation. We will follow with you.
[2018-04-03 06:30] LABS: Anion Gap 9 mmol/L (10-20); BUN (Urea Nitrogen) 6 mg/dL (9.8-20.1); Calc. Creatinine Clearance 52 mL/min (70-130); Carbon Dioxide 27 mmol/L (23-31); Chloride 98 mmol/L (98-107); Estimated GFR-MDRD 81; Glucose 81 mg/dL (83-110); Potassium 3.1 mmol/L (3.5-5.1); Sodium 131 mmol/L (136-145)
[2018-04-03] MEDS: Levothyroxine Sodium 50 MCG TAB PO SCH (06:50)
[2018-04-03 07:42] VITALS: BP 148/65; TEMP 98.1
[2018-04-03] MEDS ORDERED: Furosemide 20 MG TAB PO SCH (09:00)
[2018-04-03] MEDS: Amlodipine 5 MG TAB PO SCH (09:04)
[2018-04-03] MEDS: Enoxaparin Sodium 40 MG/0.4 ML SYRINGE SC SCH (09:05)
[2018-04-03] MEDS: Carvedilol 3.125 MG TAB PO SCH (09:05)
[2018-04-03] MEDS: Hydroxychloroquine Sulfate 200 MG TAB PO SCH (09:06)
--- NOTE | 2018-04-03 11:39 | DIS ---
DATE OF ADMISSION: 04/01/2018 DATE OF DISCHARGE: 04/03/2018 DISCHARGE DIAGNOSES: 1. Acute on chronic hyponatremia. 2. Acute kidney injury secondary to dehydration, resolving. 3. Dehydration, resolved. 4. Urinary tract infection versus colonization. CONSULTATIONS: Dr. Jay Monae with Nephrology Service. PERTINENT LAB AND X-RAY FINDINGS: Sodium ranged between 127-133, potassium ranged between 3.1-4.1, c reatinine ranged between 0.69-0.94, estimated GFR ranged between 57-81. Magnesium level 1.3. TSH 10 .16, previously noted 5.59 on 11/22/2017. Blood cultures x2 dated 04/01/2018 showed no growth to jeff e. Urine culture dated 04/01/2018 pending. HOSPITAL COURSE: The patient was initially admitted to the medical floor after presenting with dehyd ration and urinary retention. The patient was noted with dehydration and placed on IV fluids through out the hospital course with overall improvement in voiding as well as increased oral intake of water and regular diet. The patient was noted with hyponatremia. The patient was treated for suspected u rinary tract infection during the hospital course with IV Rocephin with urine culture showing evidenc e of group B strep species. The patient is currently asymptomatic in regards to urinary tract compla ints and voiding appropriately. The patient was also noted with elevated TSH level similar to previo us trend and review of electronic medical record. Current recommendations are for titration of curre nt levothyroxine on an ongoing basis after discharge. Overall, the patient did remain clinically sta ble during the hospital course, tolerating regular oral intake, and voiding appropriately. I have ex amined the patient at the time of discharge and discussed followup instructions. The patient overal l clinically stable and ready for discharge on 04/03/2018. DISCHARGE MEDICATIONS: 1. Omnicef 300 mg p.o. b.i.d. x5 days. 2. Glucosamine 1000 mg p.o. daily. 3. Amlodipine 2.5 mg p.o. daily. 4. Coreg 3.125 mg p.o. b.i.d. 5. Hydroxychloroquine 200 mg p.o. daily. 6. Levothyroxine 50 mcg p.o. daily. 7. Protonix 40 mg p.o. daily. FOLLOWUP: The patient may follow up with Dr. Brain Alvarado within 7 days of discharge. CONDITION ON DISCHARGE: Stable. ACTIVITY: Ad marissa. DIET: Regular. CODE STATUS: Full. DISPOSITION: Home 04/03/2018.
== END 2018-04-03 12:26 | disposition home or self-care (01) | DRG 641 ==
LOC: ERS 16:35 → 2NO 19:19 → T4-A 04-02 09:39
PROVIDERS: ADMIT Internal Medicine; ATTEND Internal Medicine
DX: E87.1 Hypo-osmolality and hyponatremia (principal); N39.0 Urinary tract infection, site not specified; N17.9 Acute kidney failure, unspecified; E86.0 Dehydration; I10 Essential (primary) hypertension; F03.90 Unspecified dementia, unspecified severity, without behavioral disturbance, psychotic disturbance, mood disturbance, and anxiety; E03.9 Hypothyroidism, unspecified; K21.9 Gastro-esophageal reflux disease without esophagitis; Z95.810 Presence of automatic (implantable) cardiac defibrillator; Z88.0 Allergy status to penicillin; Z90.49 Acquired absence of other specified parts of digestive tract
CPT/HCPCS: 36415; 51701; 80048; 80053; 81003; 81015; 83735; 83930; 83935; 84300; 84443; 85025; 87040; 87077; 87086; 96365; 99213; A4353; G0463; G8978-GP-CK; G8979-GP-CK; G8980-GP-CK; J0696; J1650; J7050

== ENCOUNTER 2018-07-08 13:28 | Emergency (ER) | payer MEDICARE, BC ==
[2018-07-08 14:28] LABS: #Basophils 0.1 thou/uL (0.0-0.2); #Eosinphils 0.2 thou/uL (0.0-0.7); #Lymphocytes 1.4 thou/uL (1.20-3.40); #Monocytes 0.6 thou/uL (0.11-0.59); #Neutrophils 3.5 thou/uL (1.40-6.50); %Eosinophils 3.3 % (0.0-10.0); %Lymphocytes 24.1 % (21.0-51.0); %Monocytes 10.6 % (0.0-10.0); %Neutrophils 60.9 % (42.0-75.0); Hemoglobin 12.5 g/dL (12.0-16.0); Mean Corpuscular HGB CONC 32.2 g/dL (32.0-36.0); Mean Corpuscular Hemoglobin 31.1 pg (27.0-31.0); Mean Corpuscular Volume 96.6 fL (78.0-98.0); Mean Platelet Volume 7.5 fL (7.4-10.4); Platelet Count 227 thou/uL (130-400); RBC Distribution Width 12.1 % (11.5-14.5); Red Blood Cell (RBC) Count 4.01 mill/uL (4.20-5.40); White Blood Cell (WBC) Count 5.7 thou/uL (4.8-10.8)
[2018-07-08 14:29] LABS: Bilirubin Negative (Negative); Blood, Urine Small (Negative); Clarity CLOUDY (Clear); Glucose, Urine (Dipstick) Negative (Negative); Leukocyte Large (Negative); Nitrite Negative (Negative); Protein, Urine (Dipstick) Trace mg/dL (Neg-Trace); Specific Gravity, Urine 1.014 (1.002-1.036); Urobilinogen 0.2 mg/dL (0.2-1.0); pH, Urine 6.5 (5.0-9.0)
[2018-07-08 14:38] LABS: Bacteria/HPF Rare-Few HPF (None Seen); Hyaline Casts/LPF 0-3 HYALINE CAST LPF (0-3 Hyaline); Pathc Cast-AUWi Flag 0.29 (0-2.49); Squamous Epithelial 0-3 HPF (0-3)
[2018-07-08 14:50] LABS: Anion Gap 12 mmol/L (10-20); BUN (Urea Nitrogen) 11 mg/dL (9.8-20.1); Calc. Creatinine Clearance 0 mL/min (70-130); Calcium 9.8 mg/dL (7.8-10.44); Carbon Dioxide 26 mmol/L (23-31); Chloride 100 mmol/L (98-107); Estimated GFR-MDRD 69; Glucose 99 mg/dL (83-110); Potassium 3.9 mmol/L (3.5-5.1); Sodium 134 mmol/L (136-145)
== END 2018-07-08 16:49 | disposition home or self-care (01) ==
LOC: ERS 13:28
DX: N39.0 Urinary tract infection, site not specified (principal); R21 Rash and other nonspecific skin eruption; I48.91 Unspecified atrial fibrillation; E03.9 Hypothyroidism, unspecified; G47.00 Insomnia, unspecified; I10 Essential (primary) hypertension; Z79.899 Other long term (current) drug therapy
CPT/HCPCS: 36415; 80048; 81003; 81015; 85025; 87077; 87086; 87186; 99283

== ENCOUNTER 2018-10-01 11:45 | Emergency (ER) | payer MEDICARE, BC | END 2018-10-01 12:39 | disposition home or self-care (01) | LOC: SCSER 11:45 | DX: K13.0 Diseases of lips (principal); I48.91 Unspecified atrial fibrillation; E03.9 Hypothyroidism, unspecified; I10 Essential (primary) hypertension; G47.00 Insomnia, unspecified ==

== ENCOUNTER 2018-10-01 13:07 | Emergency (ER) | payer MEDICARE, BC | END 2018-10-01 15:02 | disposition home or self-care (01) | LOC: ERS 13:07 | DX: K12.1 Other forms of stomatitis (principal); I48.91 Unspecified atrial fibrillation; E03.9 Hypothyroidism, unspecified; I10 Essential (primary) hypertension; G47.00 Insomnia, unspecified; Z79.899 Other long term (current) drug therapy | CPT/HCPCS: 99282 ==

== ENCOUNTER 2018-11-04 20:46 | Emergency (ER) | payer MEDICARE, BC ==
[2018-11-04] MEDS ORDERED: Oxymetazoline HCl 0.05% (30 ML BOT) ONE (20:51)
== END 2018-11-04 22:03 | disposition home or self-care (01) ==
LOC: ERS 20:46
DX: R04.0 Epistaxis (principal); I48.91 Unspecified atrial fibrillation; E03.9 Hypothyroidism, unspecified; I10 Essential (primary) hypertension; G47.00 Insomnia, unspecified; Z79.899 Other long term (current) drug therapy
CPT/HCPCS: 99283

== ENCOUNTER 2022-07-23 13:23 | Emergency (ER) | payer MEDICARE, BC ==
[~2022-07-23 13:23] MED LIST: Iopamidol-370 76% 500 ML 1 ML ONE
[2022-07-23 15:11] LABS: #Eosinphils 0.1 thou/uL (0.0-0.7); #Lymphocytes 1.2 thou/uL (1.20-3.40); #Monocytes 0.6 thou/uL (0.11-0.59); %Basophils 0.2 % (0.0-1.0); %Eosinophils 1.3 % (0.0-10.0); %Lymphocytes 17.1 % (21.0-51.0); %Monocytes 8.9 % (0.0-10.0); %Neutrophils 72.5 % (42.0-75.0); Hemoglobin 11.7 g/dL (12.0-16.0); Mean Corpuscular HGB CONC 32.1 g/dL (32.0-36.0); Mean Corpuscular Hemoglobin 28.5 pg (27.0-31.0); Mean Corpuscular Volume 88.8 fl (78.0-98.0); Mean Platelet Volume 7.1 fL (7.4-10.4); Platelet Count 300 10x3/uL (130-400); Red Blood Cell (RBC) Count 4.11 mill/uL (4.20-5.40); White Blood Cell (WBC) Count 6.9 10x3/uL (4.8-10.8)
[2022-07-23 15:22] LABS: ALT (SGPT) 11 U/L (8-55); AST (SGOT) 26 U/L (5-34); Albumin 3.5 g/dL (3.4-4.8); Alkaline Phosphatase 116 U/L (40-110); Anion Gap 12 mmol/L (10-20); BUN (Urea Nitrogen) 9 mg/dL (9.8-20.1); Bilirubin, Total 0.5 mg/dL (0.2-1.2); CK (CPK) 81 U/L (29-168); Calc. Creatinine Clearance 0 mL/min (70-130); Calcium 8.6 mg/dL (7.8-10.44); Carbon Dioxide 24 mmol/L (23-31); Chloride 97 mmol/L (98-107); Estimated GFR 87; Globulin 3.8 g/dL (2.4-3.5); Glucose 105 mg/dL (83-110); Potassium 3.5 mmol/L (3.5-5.1); Protein, Total 7.3 g/dL (5.8-8.1); Sodium 129 mmol/L (136-145)
[2022-07-23 15:30] LABS: PTT 31.9 sec (22.9-36.1)
[2022-07-23 15:45] LABS: Bilirubin Negative (Negative); Blood, Urine Negative (Negative); Clarity Turbid (Clear); Glucose, Urine (Dipstick) Normal (Negative); Ketone, Urine Negative (Negative); Leukocyte Negative Leu/uL (Negative); Nitrite Negative (Negative); Protein, Urine (Dipstick) Negative (Neg-Trace); Specific Gravity, Urine 1.008 (1.002-1.036); Urobilinogen Normal mg/dL (Less than 2); pH, Urine 7.5 (5.0-9.0)
== END 2022-07-23 17:58 | disposition home or self-care (01) ==
LOC: ERS 13:23
DX: R53.1 Weakness (principal); I10 Essential (primary) hypertension; I48.91 Unspecified atrial fibrillation; E03.9 Hypothyroidism, unspecified
CPT/HCPCS: 36416; 70450; 70496; 70498; 80053; 81003; 82550; 84484; 85025; 85610; 85730; 93005; 94760; Q9967